=== PATIENT | female | born 1975 | race Caucasian/White ===

== ENCOUNTER 2024-05-07 07:46 | Emergency (ER) | payer OTHER ==
[~2024-05-07] VITALS: Ht 154.9 cm; Wt 81.6 kg
--- NOTE | 2024-05-07 08:33 | DVH ---
CLINICAL INFORMATION: 49 years old, Female; INJURY. TECHNIQUE: 3 views of the left ankle were obtained. COMPARISON: None FINDINGS: No acute fracture or dislocation. Talar dome is smooth. No widening at the ankle mortise. No significant arthropathy. Adjacent soft tissues are unremarkable. IMPRESSION: No evidence of acute bony abnormality.
[2024-05-07 09:03] VITALS: TEMP 97.5
--- NOTE | 2024-05-07 09:17 | ED.PDOC ---
Musculoskeletal HPI Comments 49 year old female presents for left Achillis pain Reports she fell out the shower Pain rated as moderate Still able to bear weight Denies previous surgeries to the ankle Denies redness or swelling around the ankle Denies fever chills night sweats nausea vomiting Also c/o CP and difficulty breathing Denies having this before Denies history of RI or CVA Denies lightheadedness or dizziness Denies acid reflux, recurrent bitter/sour taste in mouth Denies shortness of breath Denies palpitations, leg swelling Denies family history of heart issues or RI Denies history of panic attacks Denies recent trauma to the chest, history of significant trauma to the chest nor surgeries of the chest Denies fever chills nausea vomiting diarrhea Chief Complaint: Lower Extremity Time Seen by MD: 08:31 Primary Care Provider: ELMA Lopez Notes: Nurses Notes, Medications, Allergies Allergies: Coded Allergies: Latex (Verified Allergy, Unknown, 05/07/24) Red Dye #40 (Allura Red) (Verified Allergy, Unknown, 05/07/24) Uncoded Allergies: ADHESIVE (Allergy, Unknown, 05/07/24) NOVACAINE (Allergy, Unknown, 05/07/24) Home Meds Active Scripts Acetaminophen (Acetaminophen) 500 Mg Tab, 1000 MG PO Q6HP PRN for 7 Days, #56 TAB 0 Refills Prov:BENITA COOLEY NP 05/07/24 Ibuprofen (Ibuprofen) 600 Mg Tab, 1 TAB PO TID for 10 Days, #30 TAB 0 Refills Prov:BENITA COOLEY NP 05/07/24 Information Source: Patient Mode of Arrival: Ambulatory Family History Family History: Reviewed,noncontributory to illness Social History Smoker: Non-Smoker Alcohol: Denies ETOH Use Drugs: Denies Drug Use All Other Systems: Reviewed and Negative (per hpi) Physical Exam General Appearance: No Apparent Distress, Normal HEENT: Normal ENT Inspection, Pharynx Normal, TMs Normal Neck: Full Range of Motion, Non-Tender, Normal, Normal Inspection Respiratory: Chest Non-Tender, Lungs Clear, No Accessory Muscle Use, No Respiratory Distress, Normal Breath Sounds Cardiovascular: No Edema, No JVD, No Murmur, No Gallop, Normal Peripheral Pulses, Regular Rate/Rhythm Breast Exam: Deferred Gastrointestinal: No Organomegaly, Non Tender, No Pulsatile Mass, Normal Bowel Sounds, Soft Genitalia: Deferred Pelvic: Deferred Rectal: Deferred Extremities: No calf tenderness, Normal capillary refill, Normal inspection, Normal range of motion, Non-tender, No pedal edema Musculoskeletal : Apperance: Normal Neurologic: Alert, No Motor Deficits, Normal Affect, Normal Mood, No Sensory Deficits Cerebellar Function: Normal Reflexes: Normal Skin: Dry, Normal Color, Warm Lymphatic: No Adenopathy Was a procedure done? Was a procedure done?: No Images 1 - 4 cm contussion. TTP 2 - TTP Differential Diagnosis EXT Differential Diagnosis: Fracture, Sprain, Dislocation X-Ray, Labs, Meds, VS Vital Signs Date Time Temp Pulse Resp B/P (MAP) Pulse Ox O2 Delivery O2 Flow Rate FiO2 05/07/24 11:08 80 18 107/72 (84) 99 05/07/24 09:03 116 18 96 Room Air 05/07/24 09:03 97.5 116 18 91/65 (74) 96 97.5 05/07/24 08:03 97.5 116 18 101/56 (71) 96 Lab Test 05/07/24 10:13 Range/Units White Blood Count 9.4 4.4-10.8 10^3/uL Red Blood Count 4.46 4.0-5.20 10^6/uL Hemoglobin 13.0 12.2-16.2 g/dL Hematocrit 38.4 36.0-46.0 % Mean Corpuscular Volume 86.2 80.0-100.0 fL Mean Corpuscular Hemoglobin 29.1 28.0-32.0 pg Mean Corpuscular Hemoglobin Concent 33.8 32.0-36.0 g/dL Red Cell Distribution Width 15.1 H 11.8-14.3 % Platelet Count 440 140-450 10^3/uL Mean Platelet Volume 7.2 6.9-10.8 fL Neutrophils (%) (Auto) 46.6 37.0-80.0 % Lymphocytes (%) (Auto) 40.3 10.0-50.0 % Monocytes (%) (Auto) 10.9 0.0-12.0 % Eosinophils (%) (Auto) 1.8 0.0-7.0 % Basophils (%) (Auto) 0.4 0.0-2.0 % Neutrophils # (Auto) 4.4 1.6-8.6 10 ^3/uL Lymphocytes # (Auto) 3.8 0.4-5.4 10 ^3/uL Monocytes # (Auto) 1.0 0-1.3 10 ^3/uL Eosinophils # (Auto) 0.2 0-0.8 10 ^3/uL Basophils # (Auto) 0 0-0.2 10 ^3/uL Nucleated Red Blood Cells 0.0 % D-Dimer, Quantitative 0.43 0.0-0.49 mg/L FEU Sodium Level 139 136-145 mmol/L Potassium Level 4.2 3.5-5.1 mmol/L Chloride Level 107 98-107 mmol/L Carbon Dioxide Level 22 20-31 mmol/L Anion Gap 10 5-15 Blood Urea Nitrogen 47 H 9-23 mg/dL Creatinine 2.35 H 0.550-1.02 mg/dL Glomerular Filtration Rate Calc 25 >90 mL/min BUN/Creatinine Ratio 20.0 10.0-20.0 Serum Glucose 117 H 74-106 mg/dL Calcium Level 10.9 H 8.7-10.4 mg/dL Current Medications Medications (Trade) Dose Ordered Sig/Kelin Route Start Time Stop Time Status Last Admin Ketorolac Tromethamine (Toradol Injection) 30 mg ONCE ONCE IM 05/07/24 09:45 05/07/24 09:46 DC 05/07/24 09:43 Sodium Chloride 1,000 ml @ 1,000 mls/hr Q1H ONCE IV 05/07/24 09:45 05/07/24 10:44 DC 05/07/24 10:05 PATIENT: DM DE JESUS ACCT: [id number] UNIT: [id number] : 1975 LOC: ER ROOM / BED: / AGE / SEX: 49 / F ADM STATUS: REG ER SERVICE 08 ORDERING PHYSICIAN: BENITA COOLEY NP PROCEDURE(s): LANKL - L ANKLE 3 VIEW REASON: INJURY ORDER NUMBER(s): [id number], ACCESSION NUMBER(s): [id number] CLINICAL INFORMATION: 49 years old, Female; INJURY. TECHNIQUE: 3 views of the left ankle were obtained. COMPARISON: None FINDINGS: No acute fracture or dislocation. Talar dome is smooth. No widening at the ankle mortise. No significant arthropathy. Adjacent soft tissues are unremarkable. IMPRESSION: No evidence of acute bony abnormality. ATED BY: JED CAMARA DO DICTATED DATE/TIME: 05/07/24830 SIGNED BY: JED CAMARA DO SIGNED DATE/TIME: 05/07/24830 CC: [place] [id number] Ph: [phone] DIAGNOSTIC IMAGING Diagnostic Imaging Report : [id number] Signed PATIENT: DM DE JESUS ACCT: [id number] UNIT: [id number] : 1975 LOC: ER ROOM / BED: / AGE / SEX: 49 / F ADM STATUS: REG ER SERVICE 6 ORDERING PHYSICIAN: BENITA COOLEY NP PROCEDURE(s): BLDVT - BiLat Lower DVT REASON: leg pain, tachy ORDER NUMBER(s): [id number], ACCESSION NUMBER(s): [id number] US BiLat Lower DVT HISTORY: leg pain, tachy COMPARISON: None TECHNIQUE: Duplex Doppler evaluation of the deep venous system of the lower extremity from the common femoral veins, superficial femoral vein, great saphenous vein, deep femoral vein, popliteal vein, and calf veins, including color Doppler and spectral/pulsed waveform analysis, was performed. FINDINGS: Right: - Common femoral vein: Compressible - Deep femoral vein: Compressible - Femoral vein: Compressible - Popliteal vein: Compressible - Other: Nothing Left: - Common femoral vein: Compressible - Deep femoral vein: Compressible - Femoral vein: Compressible - Popliteal vein: Compressible - Other: Nothing IMPRESSION: No right or left lower extremity deep venous thrombosis. ATED BY: HARRY BANSAL MD DICTATED DATE/TIME: 05/07/241020 SIGNED BY: HARRY BANSAL MD SIGNED DATE/TIME: 05/07/241020 CC: PATIENT: DM DE JESUS ACCT: [id number] UNIT: [id number] : 1975 LOC: ER ROOM / BED: / AGE / SEX: 49 / F ADM STATUS: REG ER SERVICE [id number] ORDERING PHYSICIAN: BENITA COOLEY NP PROCEDURE(s): CXR1 - CHEST XRAY 1 VIEW REASON: cough ORDER NUMBER(s): [id number], ACCESSION NUMBER(s): [id number] EXAM: XY CHEST XRAY 1 VIEW Indication: cough Technique: Single frontal view of the chest was obtained Comparison: None FINDINGS: Lines and Tubes: None Lungs: No focal consolidation. Pleura: No effusion. No pneumothorax. Cardiomediastinal contours: Unremarkable Bones: No acute osseous abnormality. IMPRESSION: No acute cardiopulmonary disease. ATED BY: CRUZ PORTILLO MD DICTATED DATE/TIME: 05/07/241039 SIGNED BY: CRUZ PORTILLO MD SIGNED DATE/TIME: 05/07/241039 CC: X-Ray, Labs, Meds, VS Comment On reevaluation, patient had symptomatic improvement. Patient is stable for discharge at this time. History and examination consistent of muscular injury Take IBU 600 w/ food as needed for pain Recommended heat therapy Reviewed RICE management Avoid heavy lifting or strenuous activity Recommended range of motion exercises and limit heavy activity for 1 week If no improvement advised patient to return to the emergency department for follow-up. External notes reviewed. Test results and diagnostic imaging interpreted. All diagnostic findings, discharge care, education and instructions provided Follow-up with PCP in 2 to 3 days. Aware of GFR. Avoid nephrotoxins Patient verbalized understanding and agreed to treatment plan Vital signs stable, afebrile, no acute distress noted Patient ambulatory with strong steady gait Advised to return precautions for any new or worsening symptoms, return to ER immediately for re-evaluation Patient is aware that the purpose of this visit was for an acute medical emergency requiring emergent stabilization. Chronic conditions, including malignancies have not been ruled out. Patient is instructed to follow up with PCP as directed and discharge instructions for continued care and workup. If unable to arrange follow-up, patient is to return to the emergency department for reassessment. Patient (parent or legal guardian if applicable) was given verbal and written discharge instructions and acknowledges understanding. Time of 1ST Reevaluation: 09:17 Reevaluation 1ST: Improved Patient Education/Counseling: Diagnosis, Treatment Family Education/Counseling: Diagnosis, Treatment Departure 1 Departure Time of Disposition: 10:42 Impression: Primary Impression: Achilles tendinitis Qualified Codes: M76.62 - Achilles tendinitis, left leg Additional Impressions: Cough Qualified Codes: R05.1 - Acute cough Contusion, lower leg Qualified Codes: S80.11XA - Contusion of right lower leg, initial encounter CKD (chronic kidney disease) stage 4, GFR 15-29 ml/min Disposition: HOME / SELF CARE / HOMELESS Condition: Stable e-Prescriptions Acetaminophen (Acetaminophen) 500 Mg Tab 1000 MG PO Q6HP PRN for 7 Days, #56 TAB 0 Refills Prov: BENITA COOLEY NP 05/07/24 Discharged With: Self Critical Care Note Critical Care Time?: No Stability Stability form required: No Heart Score Heart Score: Heart Score Response (Comments) Value History N/A 0 EKG N/A 0 Age N/A 0 Risk Factors N/A 0 Troponin N/A 0 Total 0 BENITA COOLEY NP May 07, 2024 09:17
[2024-05-07] MEDS: KETOROLAC TROMETH 30 MG/ML 1ML VIAL IM ONE (09:43)
[2024-05-07] MEDS: SODIUM CHLORIDE 0.9% 1,000 ML IV ONE (10:05)
--- NOTE | 2024-05-07 10:24 | DVH ---
US BiLat Lower DVT HISTORY: leg pain, tachy COMPARISON: None TECHNIQUE: Duplex Doppler evaluation of the deep venous system of the lower extremity from the common femoral veins, superficial femoral vein, great saphenous vein, deep femoral vein, popliteal vein, an d calf veins, including color Doppler and spectral/pulsed waveform analysis, was performed. FINDINGS: Right: - Common femoral vein: Compressible - Deep femoral vein: Compressible - Femoral vein: Compressible - Popliteal vein: Compressible - Other: Nothing Left: - Common femoral vein: Compressible - Deep femoral vein: Compressible - Femoral vein: Compressible - Popliteal vein: Compressible - Other: Nothing IMPRESSION: No right or left lower extremity deep venous thrombosis.
[2024-05-07 10:41] LABS: Basophils # (auto) 0 10 ^3/uL (0-0.2); Basophils % (auto) 0.4 % (0.0-2.0); Eosinophils # (auto) 0.2 10 ^3/uL (0-0.8); Eosinophils % (auto) 1.8 % (0.0-7.0); Hematocrit 38.4 % (36.0-46.0); Lymphocytes # (auto) 3.8 10 ^3/uL (0.4-5.4); Lymphocytes % (auto) 40.3 % (10.0-50.0); Mean Corpuscular Hemoglobin 29.1 pg (28.0-32.0); Mean Corpuscular Hgb Conc. 33.8 g/dL (32.0-36.0); Mean Corpuscular Volume 86.2 fL (80.0-100.0); Monocytes % (auto) 10.9 % (0.0-12.0); Neutrophils # (auto) 4.4 10 ^3/uL (1.6-8.6); Neutrophils % (auto) 46.6 % (37.0-80.0); Platelet Count (auto) 440 10^3/uL (140-450); Red Blood Cells 4.46 10^6/uL (4.0-5.20); Red Cell Distribution Width 15.1 % (11.8-14.3); White Blood Cell 9.4 10^3/uL (4.4-10.8)
--- NOTE | 2024-05-07 10:41 | DVH ---
EXAM: XY CHEST XRAY 1 VIEW Indication: cough Technique: Single frontal view of the chest was obtained Comparison: None FINDINGS: Lines and Tubes: None Lungs: No focal consolidation. Pleura: No effusion. No pneumothorax. Cardiomediastinal contours: Unremarkable Bones: No acute osseous abnormality. IMPRESSION: No acute cardiopulmonary disease.
[2024-05-07] MEDS ORDERED: IBUP-1454 PO (10:44)
[2024-05-07 10:52] LABS: Potassium 4.2 mmol/L (3.5-5.1); Sodium 139 mmol/L (136-145)
[2024-05-07 10:53] LABS: Anion Gap 10 (5-15); Carbon Dioxide 22 mmol/L (20-31)
[2024-05-07 10:56] LABS: Calcium 10.9 mg/dL (8.7-10.4); Chloride 107 mmol/L (98-107)
[2024-05-07 11:08] VITALS: BP 107/72; PULSE 80; RESP 18; O2SAT 99
[2024-05-07 11:14] LABS: Blood Urea Nitrogen 47 mg/dL (9-23); Glucose 117 mg/dL (74-106)
[2024-05-07] MEDS ORDERED: ACET500T58 PO (11:15)
== END 2024-05-07 11:15 | disposition home or self-care (01) ==
LOC: ER 07:46
DX: S80.11XA Contusion of right lower leg, initial encounter (principal); M76.62 Achilles tendinitis, left leg; R05.1 Acute cough; N18.4 Chronic kidney disease, stage 4 (severe); Z91.041 Radiographic dye allergy status; Z91.040 Latex allergy status; W18.30XA Fall on same level, unspecified, initial encounter; Y93.89 Activity, other specified; Y92.89 Other specified places as the place of occurrence of the external cause; Y99.8 Other external cause status
CPT/HCPCS: 36415; 71045; 73610; 80048; 85025; 85379; 93970; 96360; 96372; 99285; J1885